=== PATIENT | female | born 2000 | race Caucasian/White ===

== ENCOUNTER 2024-05-29 06:59 | Inpatient (IN) | payer MEDICAID ==
[2024-05-29] MEDS ORDERED: Ondansetron 4 MG/2 ML SDV IVPUSH PRN (07:04)
[2024-05-29] MEDS ORDERED: Sodium Chloride 0.9% 10 ML Syringe FLUSH PRN (07:04)
[2024-05-29] MEDS ORDERED: Lidocaine 1% 50 ML MDV INJECT PRN (07:04)
[2024-05-29] MEDS ORDERED: Nalbuphine 10 MG/1 ML Vial IVPUSH PRN (07:04)
[2024-05-29] MEDS ORDERED: Oxytocin/0.9 % Sodium Chloride 30 UNIT/500 ML BAG IV SCH (07:15)
[2024-05-29 07:55] LABS: BASOPHILS PERCENT AUTO 0.3 % (0.0-1.0); EOSINOPHILS ABSOLUTE AUTO 0.1 K/mm3 (0.0-0.4); EOSINOPHILS PERCENT AUTO 0.4 % (0.0-6.0); HEMATOCRIT 35.9 % (37.0-47.0); HEMOGLOBIN 11.9 gm/dl (12.0-16.0); IMMATURE GRAN ABSOLUTE AUTO 0.05 K/mm3 (0.00-0.05); IMMATURE GRAN PERCENT AUTO 0.4 % (0.0-0.4); LYMPHOCYTES PERCENT AUTO 16.9 % (24.0-44.0); MEAN CORPUSCULAR HEMOGLOBIN 27.2 pg (28.0-32.0); MEAN CORPUSCULAR HGB CONC 33.1 g/dl (32.0-36.0); MEAN CORPUSCULAR VOLUME 82.2 fl (83.0-99.0); MONOCYTES ABSOLUTE AUTO 0.9 K/mm3 (0.0-0.8); MONOCYTES PERCENT AUTO 7.5 % (0.0-8.0); NEUTROPHILS ABSOLUTE AUTO 8.8 K/mm3 (1.8-7.7); NEUTROPHILS PERCENT AUTO 74.5 % (41.0-71.0); PLATELET COUNT,PLT 160 K/mm3 (150-400); RED BLOOD CELL COUNT 4.37 M/mm3 (4.10-5.30); WHITE BLOOD CELL COUNT,WBC 11.81 K/mm3 (3.9-11.3)
[2024-05-29] MEDS: Oxytocin/0.9 % Sodium Chloride 30 UNIT/500 ML BAG IV SCH (08:13)
[2024-05-29] MEDS: ceFAZolin 2 GM in Sodium Chloride 0.9% 50 ML IV ONE (08:13)
[2024-05-29] MEDS: Lactated Ringers 1,000 ML IV SCH (08:13)
[2024-05-29] MEDS: Sodium Chloride 0.9% 10 ML Syringe FLUSH SCH (10:11)
[2024-05-29] MEDS ORDERED: ceFAZolin 1 GM in Sodium Chloride 0.9% 100 ML IV SCH (14:00)
[2024-05-29] MEDS: ceFAZolin 1 GM in Sodium Chloride 0.9% 100 ML IV SCH (16:28)
[2024-05-29 19:59] LABS: CREATININE 0.6 mg/dL (0.55-1.02)
[2024-05-29] MEDS ORDERED: Acetaminophen 325 MG Tab PO PRN (23:10)
[2024-05-29] MEDS ORDERED: Docusate Sodium 100 MG Cap PO PRN (23:10)
[2024-05-29] MEDS: Ibuprofen 600 MG Tab PO SCH (23:26)
[2024-05-29] MEDS: Benzocaine/Menthol 20%-0.5% Spray 78 GM Cannister TOP PRN (23:27)
[2024-05-29] MEDS: Witch Hazel Medicated Pads 40/Jar TOP PRN (23:28)
== END 2024-05-31 11:50 | disposition home or self-care (01) | DRG 807 ==
LOC: JD.OB 06:59 → OBSVTOIN 22:19 → JD.OB 22:19
PROVIDERS: ADMIT Obstetrics & Gynecology; ATTEND Obstetrics & Gynecology
PROC: 10E0XZZ Delivery of Products of Conception, External Approach (ICD-10-PCS; principal; 2024-05-29)
PROC: 10907ZC Drainage of Amniotic Fluid, Therapeutic from Products of Conception, Via Natural or Artificial Opening (ICD-10-PCS; 2024-05-29)
PROC: 3E0DXGC Introduction of Other Therapeutic Substance into Mouth and Pharynx, External Approach (ICD-10-PCS; 2024-05-29)
DX: O99.824 Streptococcus B carrier state complicating childbirth (principal); Z37.0 Single live birth; Z3A.39 39 weeks gestation of pregnancy; O69.81X0 Labor and delivery complicated by cord around neck, without compression, not applicable or unspecified
CPT/HCPCS: 36415; 59025; 59409; 82565; 84450; 84460; 85025; 86592; 86850; 86900; 86901; A9270-GY; J0690; J3490; J7120; J7999